=== PATIENT | female | born 1940 | race Asian ===

== ENCOUNTER 2018-05-12 07:56 | Inpatient (IN) | payer MEDICARE, OTHER, SELFPAY ==
[2018-04-22 08:40] VITALS: BMI 26.1
[2018-05-12] VITALS (17 sets, daily range): BP systolic 94–156; BP diastolic 46–73; PULSE 58–83; RESP 12–18; TEMP 36.2–37.1; O2SAT 92–99; BMI 24.3; BMI 25.7
--- NOTE | 2018-05-12 08:49 | PM.PREOP ---
Pre-operative Note Interval Note Pre-op Check: Yes History & Physical Reviewed by Physician and Yes Exam Performed Changes: No
--- NOTE | 2018-05-12 08:54 | DI.RAD.S_ITS ---
PROCEDURE: XR KNEE LT 1TO2V INDICATIONS: post op films TECHNIQUE: 3 view(s) of the knee acquired. COMPARISON: [facility], [facility], XR KNEE ARTHRITIC SERIES LT, 09/03/2017, 13:09[facility], 11:36. FINDINGS: Bones: Patient is status post knee joint arthroplasty. Hardware components are in expected positions. Visualized bony structures are intact. Soft tissues: Overlying postoperative changes are noted. IMPRESSION: Expected postoperative appearance Dictated by: Wesly Reilly M.D. on 05/12/2018 at 15:04 Approved by: Wesly Reilly M.D. on 05/12/2018 at 15:05
[2018-05-12] MEDS: LACTATED RINGERS 1,000 ML 42 ML IV (09:42)
[2018-05-12] MEDS: PREGABALIN 75 MG CAPSULE PO (09:49)
[2018-05-12] MEDS: CELECOXIB 200 MG CAPSULE PO (09:49)
[2018-05-12] MEDS: ACETAMINOPHEN 325 MG TABLET 975 MG PO ×3 (09:49→20:43)
--- NOTE | 2018-05-12 10:28 | PM.OP.1 ---
Operative Date/Time/Diagnoses Date of procedure: 05/12/18 Time of procedure: 12:56 Pre-op diagnosis: Left knee osteoarthritis Post-op diagnosis: same Procedure & Clinicians Procedure: Left total knee arthroplasty Same procedure as scheduled: Yes Indications: The patient presents today for total knee arthroplasty after failure of conservative treatment. The nature of the procedure including the risks and benefits, alternatives, postoperative course and expected outcome were discussed and all questions answered. Consent was obtained. Operative site confirmed and marked. Surgeon: Rhett Schneider Central Office Associate: Juan Moy Anesthesia Type: General, Spinal and Local Operative Notes Findings: Patient has severe osteoarthritis with large ossicles in the anterior and medial compartments. There is significant medial bone loss requiring a 12 mm resection on the lateral side. She also had a 15-20 degree flexion contracture preoperatively. Closure Type: primary Specimen(s): none sent Implants & Drains: [employer] Kai BCS: 5 femoral component, 3 tibial component, 9 mm BCS polyethylene tray and 32 mm oval patella Applied: implant(s) Estimated Blood Loss (mL): 50 Blood products transfused: none Tourniquet time (min): 26 Procedure in detail: The patient was taken to the operative suite and placed under general and spinal anesthesia. The patient was given prophylactic antibiotics prior to surgery. The patient was also given tranexamic acid, 1 g, just prior to surgery for postoperative hemostasis. The lateral knee was prepped and the joint injected with 20 mL of 1% Lidocaine with epinephrine. The knee was then prepped and draped in usual sterile fashion. The leg was exsanguinated with an Esmarch dressing and the tourniquet raised to 250 torr. A 15 cm anterior incision was made. Next a medial trivector arthrotomy was made. The extensor mechanism was marked to ensure accurate repair. Initial exposing dissection was carried out medially and laterally. The knee was then extended and the patellar thickness was measured and a cut made removing approximately 9 mm of bone. The patella was then sized and drilled. Some excess lateral bone was excised and the patellofemoral ligament released. The knee was then flexed and the intramedullary femoral guide karthikeyan placed. The distal femoral cut was made in 6 ? of valgus at the + 2 position. The femoral size was measured and the appropriate cutting block was then placed and the anterior, posterior and chamfer cuts made. The extra medullary tibial alignment karthikeyan was then placed along the anatomic axis of the tibia approximating the normal slope. The guide was set to remove approximately 12 mm from the less affected lateral side. The cut needed to be this deep so a taken adequate cut medially which had significant bone loss. The proximal tibial cut was then made with an oscillating saw. All meniscus and bony debris was then removed. Flexion extension gaps were checked. The knee had excellent medial lateral balance without specific releases other than routine soft tissue releases and osteophyte removal. There were large bony ossicles posteriorly and anteriorly which were removed. The soft tissues were then injected with a combination of 20 mL of half percent Marcaine with epinephrine and 20 mL of Exparel. The trial components were then placed. The knee went into full extension and flexion beyond 120?. There was excellent medial- lateral balance throughout motion. Patellar tracking was excellent. The trial components were removed and the knee was cleansed with Pulsavac irrigation and dried. The final components were cemented in with high viscosity vacuum mixed bone cement with antibiotics. The knee was held in extension and the patellar clamp until the cement had adequately cured. The knee was irrigated and inspected for any further debris. The knee was then irrigated with dilute Betadine solution. The extensor mechanism was closed with 5 interrupted #1 Vicryl sutures in 90 degrees of flexion. The joint was then injected with a combination of 1 g of tranexamic acid and 20 mL of quarter percent Marcaine with epinephrine. The subcutaneous tissue was closed with 2-0 Vicryl. The skin was closed with mynor and surgical adhesive. An Aquacell dressing and Jerrell wrap were then applied. The patient tolerated the procedure well and was returned to recovery room in good condition. Complications: none Condition: stable Disposition: PACU Plan for aftercare: [facility] protocol for total knee arthroplasty.
[2018-05-12] MEDS: CEFAZOLIN 2 GM/100 ML FROZ.PIGGY IV ×2 (11:05→19:06)
--- NOTE | 2018-05-12 11:38 | SUR.OPER ---
Supine on padded OR bed. Pillow under head, arms secured on padded armboards <90 degree abduction. Safety belt across torso. Non-operative leg secured with tape over blanket over lower leg. Operative leg secured in DeMayo/Valentin positioner. Foam padded brace at thigh of operative leg.
[2018-05-12] MEDS: TRANEXAMIC ACID 1,000 MG VIAL 1000 MG INJ ×2 (11:46→11:54)
[2018-05-12] MEDS: LIDOCAINE 1% W/EPI INJ 20 ML INJ (11:47)
[2018-05-12] MEDS: BUPIVACAINE 0.5% W/ EPI (PF) 20 ML, BUPIVACAINE LIPOSOME 266 MG, SODIUM CHLORIDE 0.9% 2... INJ (11:49)
--- NOTE | 2018-05-12 13:28 | SUR.PHASEI ---
REPORT CALLED TO MARTIN BALDERAS ON ACUTE CARE FLOOR. PT IN STABLE CONDITION, VSS. PT LAYING IN BED WITH EYES OPEN AND TALKING TO RN. PT DENIES ANY PAIN/DISCOMFORT OR NAUSEA. SURGICAL SITE OBSERVED TO BE C/D/I.
--- NOTE | 2018-05-12 13:45 | SUR.PHASEI ---
PT TRANSFERED TO ACUTE CARE FLOOR IN STABLE CONDITION. PT TALKING TO RN DURING TRANSPORT. PT FAMILY AT BEDSIDE UPON ARRIVAL TO ROOM. BEDSIDE REPORT GIVEN TO MARTIN BALDERAS AND TRANSFERED CARE OF PT TO HER AT THAT TIME.
[2018-05-12] MEDS: LACTATED RINGERS 1,000 ML 125 ML IV (14:01)
[2018-05-12] MEDS: LEVOTHYROXINE 25 MCG TABLET PO (15:37)
--- NOTE | 2018-05-12 16:32 | PT.IIE ---
Current Diagnoses Unilateral primary osteoarthritis, left knee (05/12/18) Hemarthrosis, left knee (05/12/18) Surgery Performed Operation Date: 05/12/18 10:30 Actual Procedures p Total Knee Arthroplasty(Left) - Rhett Schneider MD Surgical History (Last Updated 04/22/18 @ 08:44 by Selam Quinteros, RN) History of arthroplasty of right knee (Acute ~11/10/16) Hx of cholecystectomy (Acute) Medical History (Last Updated 04/22/18 @ 08:48 by Selam Quinteros RN) Arthritis (Acute) Asthma (Acute) CKD (chronic kidney disease) stage 3, GFR 30-59 ml/min (Acute) COPD (chronic obstructive pulmonary disease) (Acute) 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) Diabetes (Acute) Easy bruisability (Acute) Hypercalcemia (Acute) Hyperlipidemia (Acute) Irregular heart beat (Acute) ZEINA (obstructive sleep apnea) (Acute) Osteoporosis (Acute) Pneumonia (Acute ~1995) RLS (restless legs syndrome) (Acute) Thyromegaly (Acute) Physical Therapy Inpatient Evaluation/Re-Eval M1 PT/OT-IP Prior Functional Status Start: 05/12/18 16:35 Freq: NEEDED Status: Active Protocol: Document 05/12/18 16:32 DLM (Rec: 05/12/18 16:46 [facility] [id number]) Medical Review Prior Functional Status Medical History Reviewed Yes Diet/Fluid Consistency Regular Communication WNL Mobility and Gait Independent gait without device Activities of Daily Living and IADL's Independent Prior Functional Level (Other details) had right TKA about 1.5 years ago Social History Household Members family children Living Arrangements Mobile home Number of Floors (Floors) One Floor Number of Stairs To Enter/Railing? ramp Home Equipment Front Wheel Walker Additional Social History Comment has CPAP at home but it is not working M2 PT-IP Current Condition Start: 05/12/18 16:35 Freq: NEEDED Status: Active Protocol: Document 05/12/18 16:32 DLM (Rec: 05/12/18 16:46 DL [id number]) Physical Therapy Current Condition Current Condition Evaluation Date 05/12/18 Treatment Diagnosis left TKA, impaired gait Onset Date 05/12/17 Weight Bearing Status Weight Bearing Status Weight Bear as Tolerated M3 PT-IP Subjective Start: 05/12/18 16:35 Freq: NEEDED Status: Active Protocol: Document 05/12/18 16:32 DLM (Rec: 05/12/18 16:46 DL [id number]) Subjective Physical Therapy Visit Type Type Initial Evaluation Visit Start Time 16:00 Visit Stop Time 16:34 Total Visit Minutes 34 Number of LUBE ATTENDANT Visits 0 Physical Therapy Visit Comments Patient Comments She has had no pain since surgery Patient Goals She want to go home Therapy Pain Assessment Pain When Pain Assessed During Mobility Pain Present Pain Present Denied Pain M4 PT-IP Mobility and Gait Start: 05/12/18 16:35 Freq: NEEDED Status: Active Protocol: Document 05/12/18 16:32 DLM (Rec: 05/12/18 16:46 [facility] [id number]) PT-Bed Mobility Assessment Supine to Sit Supine to Sit Standby Assistance Scooting Scooting to Edge of Bed Independent Scooting Up and Down in Bed Independent PT-Transfer Assessment Sit to and From Stand Sit to and from Stand Standby Assistance Use of Upper Extremities Equipment Transfer Assistive Device Gait Belt Front Wheeled Walker Transfers Transfer Destination Chair Transfer Technique Stand Step Pivot Transfer Ability Level of Assist Standby Assistance Gait Assessment Gait Gait Assistance Required: Standby Assistance Distance (Feet) 3 Assistive Devices Assistive Device Gait Belt Front Wheeled Walker Gait Deviations General Gait Pattern Antalgic Factors Limiting Gait Function Factors Limiting Gait Function Decreased Activity Tolerance Comments Gait Comments mild light-headedness while up , pt left up in recliner with initial vitals BP 120/70 and HR 64, repeated vitals 130/63 and HR 61, nursing aware pt is up in chair PT-Balance Assessment Sitting Balance and Reactions Static Sitting Balance Ability Normal Dynamic Sitting Balance Ability Normal Standing Balance and Reactions Static Standing Balance Ability Good Dynamic Standing Balance Ability Good Device Used FWW M5 PT-IP Objective Assessments Start: 05/12/18 16:35 Freq: NEEDED Status: Active Protocol: Document 05/12/18 16:32 DLM (Rec: 05/12/18 16:46 [facility] [id number]) Orientation Orientation/Cognition Level of Alertness Alert Orientation Name Age Birthday Month Date Year Day of Week Place Situation Language Function Ability No Deficits Noted Safety Awareness Understands Safety Issues Memory Description No Deficits Noted Gross Range of Motion Upper Extremity ROM Assessment Within Functional Limits Lower Extremity ROM Assessment Left Impaired Impairments post-op, tolerating 90 degrees seated edge of bed and full extension in supine Strength Upper Extremity Strength Assessment Within Functional Limits Lower Extremity Strength Assessment Left Impaired Hip independent straight leg raise with extensor lag Knee at least 3/5 post-op Ankle DF 5/5 Coordination Assessment Gross Coordination Gross Coordination WNL Sensation Assessment Sensation Gross Sensation WNL Comments Sensation Comments no numbness reported, pt has bandar wrap on left LE Muscle Tone Muscle Tone WNL Yes M6 PT-IP Treatment Start: 05/12/18 16:35 Freq: NEEDED Status: Active Protocol: Document 05/12/18 16:32 DLM (Rec: 05/12/18 16:46 DLM [id number]) Physical Therapy Treatment Exercises Exercises Ankle Pumps Education Education Provided Weight Bearing Status Post-Op Packet Safety M7 PT-IP Assessment and Plan Start: 05/12/18 16:35 Freq: NEEDED Status: Active Protocol: Document 05/12/18 16:32 DLM (Rec: 05/12/18 16:46 DLM [id number]) PT Summary Assessment and Plan Potential Rehabilitation Potential Excellent Status of Condition at Evaluation Evolving Summary Impairments Pain ROM Strength Transfers Gait Activity Tolerance Assessment Summary She is alert and eager to move today. She developed mild light-headedness when up which resolved once resting in recliner. Noted a drop in BP when up but stabalized in sitting. She is moving well at this time. Pt left sitting up in recliner. Anticipate she will be safe to discharge home with family support when medically stable. Goals Bed Mobility Goal Independent Transfer Goal Independent Front Wheeled Walker Gait Goal Independent Front Wheel Walker Gait Distance 150 feet Days to Meet Goals 2 Frequency of Treatment Frequency Of Treatment Twice a Day Treatment Plan Physical Therapy Treatment Plan Bed Mobility Training Transfer Training Gait Training Therapeutic Exercise Balance Retraining Post Op Education Discharge Planning Hot or Cold Pack Recommendations To Nursing Amount of Assist Needed 1 Person Assist Discharge Recommendations PT Discharge Recommendations Home with Assistance Outpatient PT
[2018-05-12] MEDS: ONDANSETRON 4 MG/2 ML INJ IV (17:07)
[2018-05-12] MEDS: TELMISARTAN 40 MG TABLET PO (20:42)
[2018-05-12] MEDS: ROPINIROLE 1 MG TABLET PO (20:43)
[2018-05-12] MEDS: ASPIRIN EC 81 MG TABLET PO (20:43)
[2018-05-12] MEDS: BENZONATATE 100 MG CAPSULE PO (20:43)
[2018-05-12] MEDS: SIMVASTATIN 20 MG TABLET PO (20:43)
[2018-05-13] VITALS (10 sets, daily range): BP systolic 131–142; BP diastolic 55–73; PULSE 79–94; RESP 16–20; TEMP 36.7–38.1; O2SAT 89–96
[2018-05-13] MEDS: CEFAZOLIN 2 GM/100 ML FROZ.PIGGY IV (02:12)
[2018-05-13] MEDS: LEVOTHYROXINE 25 MCG TABLET PO (03:01)
[2018-05-13] MEDS: OXYCODONE IR 5 MG TABLET PO ×5 (03:01→19:33)
--- NOTE | 2018-05-13 05:04 | PC.NURSE ---
Copy Writer Note: 0030: Awake, resting in bed. Pt denies pain at this time. Dressing and bandar wrap to lt knee are cdi. Pt remains on O2 1L/NC, with continuous pulse oximeter. IV in place in rt wrist.
[2018-05-13 05:36] LABS: Hematocrit 28.2 % (36-46); Hemoglobin 9.1 g/dL (12.0-16.0)
[2018-05-13] MEDS: ACETAMINOPHEN 325 MG TABLET 975 MG PO ×3 (08:30→20:44)
[2018-05-13] MEDS: hydroCHLOROthiazide 25 MG TABLET PO (08:30)
[2018-05-13] MEDS: ASPIRIN EC 81 MG TABLET PO ×2 (08:30→20:44)
[2018-05-13] MEDS: TELMISARTAN 40 MG TABLET PO ×2 (08:30→20:46)
[2018-05-13] MEDS: ALBUTEROL HFA 60 PUFF/8 GM INH INH ×3 (08:31→14:30)
[2018-05-13] MEDS: NICOTINE 7 MG PATCH TOP (08:32)
[2018-05-13] MEDS: ONDANSETRON 4 MG ODT PO (09:28)
--- NOTE | 2018-05-13 10:15 | PT.IPTN ---
Current Diagnoses Unilateral primary osteoarthritis, left knee (05/12/18) Hemarthrosis, left knee (05/12/18) Surgery Performed Operation Date: 05/12/18 10:30 Actual Procedures p Total Knee Arthroplasty(Left) - Rhett Schneider MD Physical Therapy Treatment Note M2 PT-IP Current Condition Start: 05/12/18 16:35 Freq: NEEDED Status: Active Protocol: Document 05/12/18 16:32 DLM (Rec: 05/12/18 16:46 DLM [id number]) Physical Therapy Current Condition Current Condition Evaluation Date 05/12/18 Treatment Diagnosis left TKA, impaired gait Onset Date 05/12/17 Weight Bearing Status Weight Bearing Status Weight Bear as Tolerated M3 PT-IP Subjective Start: 05/12/18 16:35 Freq: NEEDED Status: Active Protocol: Document 05/13/18 10:03 SA (Rec: 05/13/18 10:14 SA [id number]) Subjective Physical Therapy Visit Type Type Treatment Note Visit Start Time 09:02 Visit Stop Time 09:27 Total Visit Minutes 25 Number of FORMAL WAITER/WAITRESS Visits 1 Physical Therapy Visit Comments Patient Comments Pt feeling some pain/soreness this AM. Patient Goals To go home with daughter. Therapy Pain Assessment Pain When Pain Assessed During Mobility Pain Present Pain Present Pain Reported Location L knee Intensity 7 Scale Used Numeric (1 - 10) Pain Management Techniques Apply Cold Modification of Treatment Re-positioning Timing of Activity with Medications M4 PT-IP Mobility and Gait Start: 05/12/18 16:35 Freq: NEEDED Status: Active Protocol: Document 05/13/18 10:03 SA (Rec: 05/13/18 10:14 SA [id number]) PT-Bed Mobility Assessment Rolling Type of Rolling Roll to Right Level of Assist Standby Assistance Supine to Sit Supine to Sit Standby Assistance Sit to Supine Sit to Supine Standby Assistance Scooting Scooting to Edge of Bed Independent Scooting Up and Down in Bed Independent PT-Transfer Assessment Sit to and From Stand Sit to and from Stand Standby Assistance Use of Upper Extremities Equipment Transfer Assistive Device Gait Belt Front Wheeled Walker Orthotic/Prosthetic Devices or Brace: No Transfers Transfer Destination Bed Transfer Technique Stand Step Pivot Transfer Ability Level of Assist Standby Assistance Comments Mobility Comments Pt able to clear LE over EOB for sit to supine with SBA and crossing RLE under LLE. SBA and FWW for stand pivot txs with cues for safety. Gait Assessment Gait Gait Assistance Required: Standby Assistance Contact Guard Assist Distance (Feet) 75 Assistive Devices Assistive Device Gait Belt Front Wheeled Walker Gait Deviations General Gait Pattern Antalgic Decreased Stride Length Flexed Trunk Factors Limiting Gait Function Factors Limiting Gait Function Decreased Activity Tolerance Pain Comments Gait Comments Pt had no c/o light-headedness with standing/ambulation. Rates pain as 7-8/10 but has only had tylonol and plans to have pain medication after session. Gait training in halls with FWW and SBA-CGA with mod cues for upright posture and increasing WBing through LLE. PT-Balance Assessment Sitting Balance and Reactions Static Sitting Balance Ability Normal Dynamic Sitting Balance Ability Normal M5 PT-IP Objective Assessments Start: 05/12/18 16:35 Freq: NEEDED Status: Active Protocol: Document 05/12/18 16:32 DLM (Rec: 05/12/18 16:46 DLM [id number]) Orientation Orientation/Cognition Level of Alertness Alert Orientation Name Age Birthday Month Date Year Day of Week Place Situation Language Function Ability No Deficits Noted Safety Awareness Understands Safety Issues Memory Description No Deficits Noted Gross Range of Motion Upper Extremity ROM Assessment Within Functional Limits Lower Extremity ROM Assessment Left Impaired Impairments post-op, tolerating 90 degrees seated edge of bed and full extension in supine Strength Upper Extremity Strength Assessment Within Functional Limits Lower Extremity Strength Assessment Left Impaired Hip independent straight leg raise with extensor lag Knee at least 3/5 post-op Ankle DF 5/5 Coordination Assessment Gross Coordination Gross Coordination WNL Sensation Assessment Sensation Gross Sensation WNL Comments Sensation Comments no numbness reported, pt has bandar wrap on left LE Muscle Tone Muscle Tone WNL Yes M6 PT-IP Treatment Start: 05/12/18 16:35 Freq: NEEDED Status: Active Protocol: Document 05/13/18 10:03 SA (Rec: 05/13/18 10:14 SA [id number]) Physical Therapy Treatment Exercises Exercises Ankle Pumps Quad Sets Heel Slides Education Education Provided Weight Bearing Status Post-Op Packet Safety M7 PT-IP Assessment and Plan Start: 05/12/18 16:35 Freq: NEEDED Status: Active Protocol: Document 05/13/18 10:03 SA (Rec: 05/13/18 10:14 SA [id number]) PT Summary Assessment and Plan Potential Rehabilitation Potential Excellent Status of Condition at Evaluation Evolving Summary Assessment Summary Pt used 1L 02 with sats 93-95% with activity. SBA-Ind with bed mobility and SBA- occasional CGA for transfers and gait. Pt demonstrates good safety awareness and use of FWW. Has daughter who is a [employer] at home for assistance. Has OP PT set up upon d/c. Frequency of Treatment Frequency Of Treatment Twice a Day Treatment Plan Physical Therapy Treatment Plan Bed Mobility Training Transfer Training Gait Training Therapeutic Exercise Balance Retraining Post Op Education Discharge Planning Hot or Cold Pack Recommendations To Nursing Amount of Assist Needed 1 Person Assist Discharge Recommendations PT Discharge Recommendations Home with Assistance Outpatient PT
--- NOTE | 2018-05-13 11:49 | PM.PNPO.1 ---
Subjective Date Patient Seen: 05/13/18 Time Patient Seen: 11:50 Interval history: Patient's pain is [id number]. Patient denies fever chills. She has been little short of breath and is on 1 L oxygen per nasal cannula. Denies chest pain. She has been up ambulating with physical therapy. Patient does have a history of COPD and asthma as well as chronic tobacco use. Exam Vital Signs (past 8 hours): - 05/13/18 07:20 05/13/18 08:24 05/13/18 08:58 Pulse Rate 81 Respiratory Rate 20 Blood Pressure 131/55 L Pulse Oximetry 95 96 95 05/13/18 08:59 Pulse Rate 82 Respiratory Rate 18 Blood Pressure Pulse Oximetry 89 L Fraction of Inspired Oxygen 21 Oxygen Delivery Method Nasal Cannula Oxygen Flow Rate 0 Narrative Exam Narrative: 78-year-old female sitting at bedside in no apparent distress. Left knee dressing is clean, dry and intact. Neurovascular status is intact to the distal left lower extremity. O2 sat early this morning was 96% on 1 L and failed 89% with physical therapy. Patient's back on 1 L per nasal cannula at this time. Will work on weaning her off oxygen prior to discharge. Likely discharge home tomorrow if oxygen saturation improved. Objective Labs Result Diagrams: 05/13/18 04:56 Labs: Laboratory Results - last 24 hr 05/13/18 04:56 Hgb 9.1 L Hct 28.2 L Assessment & Plan Post-op Postoperative Procedures Operation Date: 05/12/18 10:30 Actual Procedures Side Surgeon p Total Knee Arthroplasty Left Rhett Schneider MD Weightbearing as tolerated left lower extremity. Encourage incentive spirometer.
--- NOTE | 2018-05-13 11:52 | CM.DANOTE ---
Addendum entered by LUIS ALBERTO Petersen 05/13/18 12:28: Per LAKEISHA Moy patient to possible discharge home tomorrow (Thursday). Original Note: Discharge Planning/Care Management CM Discharge Assessment Start: 05/13/18 11:50 Freq: Status: Active Protocol: Document 05/13/18 11:50 (Rec: 05/13/18 11:52 [id number]) Discharge Planning Assessment Assigned Intake Counselor LUIS ALBERTO Reyes Advance Directives? Yes Advance Directives on File No History Provided By Patient Medical Record Has Patient been admitted in last 30 No days? Prior Living Arrangements Mobile home Household Members family children Type of transporation used prior to Drives own vehicle admit Independent with ADL's Yes Is patient alert and oriented? Yes Patient/Family Preference OP PT Therapy Barriers to Discharge No Discharge Plan Home Community Services Physical Therapy Transportation Arrangement Daughter Joana to provide. Additional Comment Patient has OP PT set up with PT. Patient is hopeful to discharge home today. Whiteboard Updated in Patient Room with Yes name and ext. # of Intake Counselor Please Provide Date Initial DC 05/13/18 Assessment Was Performed Pre-Anesthesia Assessment Start: 04/22/18 08:40 Freq: Status: Complete Protocol: Document 04/22/18 08:40 CAB (Rec: 04/22/18 09:27 CAB [id number]) Pre-Anesthesia Assessment Patient Information Reviewed Via Phone Assessment Assessment Completed With Patient Lab Results BMP/CMP CBC EKG Other Comment A1c - Outside labs/EKG to med records to be scanned to chart Primary Care Provider Antonio Seen Specialist in Last 12 Months Yes Specialist Seen Oncologist Orthopedist Primary Language Omani Ground Host/Hostess Required No Height 162.56 cm Weight 68.946 kg Body Mass Index (BMI) 26.1 Hearing Ability Normal Visual Assist Glasses Dentition Type Full- Upper & Lower Barriers to Learning Age related Memory Hx Anesthesia Reactions No Hx Family Anesthesia Reaction No Hx Malignant Hyperthermia No Hx Blood Transfusions No Anesthesia Review Requested No Coroner Forensic Technician No alcohol intake former Alcohol Intake Frequency Other: None Smoking Status Current every day smoker Smoking packs per day 0.50 Substance Use Type does not use Pain Present Pain Reported Musculoskeletal Symptoms Abnormal Gait Difficulty Walking Joint Pain Joint Stiffness History of Falling (Recent or History of Yes ) Patient is completely paralyzed or No completely immobile Prosthesis or Orthotic Device Cane Front Wheel Walker Mental Status Oriented to own ability Is patient on oxygen? No Does patient have LYONS/SOB No Hx Sleep Apnea Yes: Pt states current CPAP not working correctly CPAP/BIPAP use prescribed not used Comment Pt will speak w/PCP to obtain new CPAP-advised to bring dos if available Currently Taking a Beta Quintin No Can You Climb a Flight of Stairs Without Yes SOB Hx Chest Pain No Hx SOB No Hx Syncope or Dizziness No Anti-Coagulant Therapy Yes: Aspirin 81mg/bid Has a Carpenter Helper Maintenance No Cardiac Testing No Hx Pacemaker/ICD No Pacemaker Rep Required? No Cardiac Clearance Received Not Applicable Diet Type At Home Regular dysphagia No Urinary Catheter Present No Hx Urinary Self Catheterization No Diabetes Yes: Pt checks blood sugar once every couple of days HgbA1C 6.7 Date 03/29/18 Patient No Lactating No Hx Drug Resistant Organism No Presence of External or Internal Medical No Devices Have you traveled outside the [facility] in the last 30 days? Marital Status / Lives With family children Prior Living Arrangements Mobile home Number of Floors (Floors) One Floor Number of Stairs To Enter/Railing? none Support System Child/Children Does the Patient Have Assistance After Yes Surgery Patient Discharge Plan Description Return Home Comment Pt not advised on length of stay per surgeon's office Feels Safe in Current Environment Yes Been Physically Hurt or Threatened By a No Person in Current Environment Do you have thoughts of harming yourself None or others? Are you currently considering suicide? No Do you have a plan to hurt yourself or No Plan others? Do You Have Any Spiritual Beliefs That No May Affect Your HC Choices? Do You Have Any Cultural Practices That No May Affect Your HC Choices? Spiritual Referral In-House Revenue Audit Clerk Comment Gnosticism Who Can We Speak to About Patient's Care Family, friends Identifying Code for Release of Patient Declines to issue Information Health Care Proxy/Next of Kin Joana (daughter) Health Care Proxy or [phone] Emergency Contact Name Joana (daughter) Emergency Contact or [phone] Advance Directives? Yes Advance Directives on File No Requested Patient Bring Advanced Yes Directives DOS Power of Program Paraprofessional Yes Power of Program Paraprofessional Name Joana (daughter) Power of Program Paraprofessional or [phone] PAC Instructions Bring CPAP/BIPAP Do not shave/clip surgical site Durable medical equipment Medications to take/avoid Nasal antibiotic No ETOH/petroleum product on skin DOS NPO Pre-surgical wash Sturdy shoes/comfortable clothes Do not bring valuables and remove jewelry
--- NOTE | 2018-05-13 12:12 | PC.NURSE ---
Attempted to wean patient from 1L oxygen, 87-90% on ra, and unable to maintain at this time. 1L nc put back on and patient up to 96%. Isa Sierra states he will order a RT consult, and plan for patient to stay overnight.
--- NOTE | 2018-05-13 13:45 | PT.IPTN ---
Current Diagnoses Unilateral primary osteoarthritis, left knee (05/12/18) Hemarthrosis, left knee (05/12/18) Surgery Performed Operation Date: 05/12/18 10:30 Actual Procedures p Total Knee Arthroplasty(Left) - Rhett Schneider MD Physical Therapy Treatment Note M2 PT-IP Current Condition Start: 05/12/18 16:35 Freq: NEEDED Status: Active Protocol: Document 05/12/18 16:32 DLM (Rec: 05/12/18 16:46 DLM [id number]) Physical Therapy Current Condition Current Condition Evaluation Date 05/12/18 Treatment Diagnosis left TKA, impaired gait Onset Date 05/12/17 Weight Bearing Status Weight Bearing Status Weight Bear as Tolerated M3 PT-IP Subjective Start: 05/12/18 16:35 Freq: NEEDED Status: Active Protocol: Document 05/13/18 13:39 AMH (Rec: 05/13/18 13:45 AMH [email or web address]) Subjective Physical Therapy Visit Type Type Treatment Note Visit Start Time 13:05 Visit Stop Time 13:35 Total Visit Minutes 30 Number of WATERPROOFING SUPERVISOR Visits 0 Physical Therapy Visit Comments Patient Comments Reports pain 5/10 Patient Goals To go home with daughter. Therapy Pain Assessment Pain When Pain Assessed During Mobility Pain Present Pain Present Pain Reported M4 PT-IP Mobility and Gait Start: 05/12/18 16:35 Freq: NEEDED Status: Active Protocol: Document 05/13/18 13:39 AMH (Rec: 05/13/18 13:45 AMH [id number]) PT-Bed Mobility Assessment Rolling Type of Rolling Roll to Right Level of Assist Standby Assistance Supine to Sit Supine to Sit Standby Assistance Sit to Supine Sit to Supine Standby Assistance Scooting Scooting to Edge of Bed Independent Scooting Up and Down in Bed Independent PT-Transfer Assessment Sit to and From Stand Sit to and from Stand Standby Assistance Use of Upper Extremities Equipment Transfer Assistive Device Gait Belt Front Wheeled Walker Orthotic/Prosthetic Devices or Brace: No Transfers Transfer Destination Bed Transfer Technique Stand Step Pivot Transfer Ability Level of Assist Standby Assistance Comments Mobility Comments Pt able to demonstrate safe transfer technique and did not require verbal cueing for transfer in and out of bed Gait Assessment Gait Gait Assistance Required: Standby Assistance Contact Guard Assist Distance (Feet) 60 Assistive Devices Assistive Device Gait Belt Front Wheeled Walker Gait Deviations General Gait Pattern Antalgic Decreased Stride Length Flexed Trunk Factors Limiting Gait Function Factors Limiting Gait Function Decreased Activity Tolerance Pain Comments Gait Comments rates pain as 5/10, gait improved as the patient warmed up and she was able to heel strike and take a full step with her right foot. Her O2 sats on 1 liter were 93 initially and went to 86 with exercise M5 PT-IP Objective Assessments Start: 05/12/18 16:35 Freq: NEEDED Status: Active Protocol: Document 05/12/18 16:32 DLM (Rec: 05/12/18 16:46 DLM [id number]) Orientation Orientation/Cognition Level of Alertness Alert Orientation Name Age Birthday Month Date Year Day of Week Place Situation Language Function Ability No Deficits Noted Safety Awareness Understands Safety Issues Memory Description No Deficits Noted Gross Range of Motion Upper Extremity ROM Assessment Within Functional Limits Lower Extremity ROM Assessment Left Impaired Impairments post-op, tolerating 90 degrees seated edge of bed and full extension in supine Strength Upper Extremity Strength Assessment Within Functional Limits Lower Extremity Strength Assessment Left Impaired Hip independent straight leg raise with extensor lag Knee at least 3/5 post-op Ankle DF 5/5 Coordination Assessment Gross Coordination Gross Coordination WNL Sensation Assessment Sensation Gross Sensation WNL Comments Sensation Comments no numbness reported, pt has bandar wrap on left LE Muscle Tone Muscle Tone WNL Yes M6 PT-IP Treatment Start: 05/12/18 16:35 Freq: NEEDED Status: Active Protocol: Document 05/13/18 13:39 AMH (Rec: 05/13/18 13:45 [facility] [id number]) Physical Therapy Treatment Exercises Exercises Ankle Pumps Quad Sets Heel Slides Seated Knee Flexion/Extension Education Education Provided Weight Bearing Status Post-Op Packet Safety M7 PT-IP Assessment and Plan Start: 05/12/18 16:35 Freq: NEEDED Status: Active Protocol: Document 05/13/18 13:39 AMH (Rec: 05/13/18 13:45 [facility] [id number]) PT Summary Assessment and Plan Summary Assessment Summary pt staying one additional night due to her need for O2 and O2 sats continuing to drop with mobility and gait. Aiyana demonstrated safe transfer techniques and good weight bearing through her L LE Frequency of Treatment Frequency Of Treatment Twice a Day Treatment Plan Physical Therapy Treatment Plan Bed Mobility Training Transfer Training Gait Training Therapeutic Exercise Balance Retraining Post Op Education Discharge Planning Hot or Cold Pack Recommendations To Nursing Amount of Assist Needed 1 Person Assist Discharge Recommendations PT Discharge Recommendations Home with Assistance Outpatient PT
[2018-05-13] MEDS: BENZONATATE 100 MG CAPSULE PO (14:29)
--- NOTE | 2018-05-13 16:07 | PC.NURSE ---
Addendum entered by Sharron Mixon R.N. 05/13/18 21:20: Satisfactory post op course. HL intact/patent Dsg CDI Med for discomfort x 2 w/good relief. Call light w/in reach, bed alarm on for pt safety. Continue w/plan of care. Original Note: Pt resting quietly @ this time. SpO2 93% 1L, lungs course throughout. Aquacell dsg to left knee CDI Stable post op course. Call light w/in reach, bed alarm on for pt safety.
[2018-05-13] MEDS: ALBUTEROL/IPRATROPIUM 3 ML AMPUL INH (20:15)
[2018-05-13] MEDS: ROPINIROLE 1 MG TABLET PO (20:45)
[2018-05-13] MEDS: SIMVASTATIN 20 MG TABLET PO (20:45)
[2018-05-14] VITALS (10 sets, daily range): BP systolic 121–149; BP diastolic 57–71; PULSE 78–94; RESP 17–20; TEMP 36.7–37.4; O2SAT 89–97
--- NOTE | 2018-05-14 | DI.RAD.S_ITS ---
PROCEDURE: XR CHEST 1V INDICATIONS: sob TECHNIQUE: One view of the chest was acquired. COMPARISON: None. FINDINGS: Surgical changes and devices: None. Lungs and pleura: No pleural effusions or pneumothorax. Lungs are clear. Mediastinum: Mediastinal contours appear normal. Heart size is normal. Bones and chest wall: No suspicious bony lesions. Overlying soft tissues appear unremarkable. IMPRESSION: Normal for age, source of current shortness of breath symptoms is not seen. Dictated by: Daniel Lackey M.D. on 05/14/2018 at 10:32 Approved by: Daniel Lackey M.D. on 05/14/2018 at 10:32
[2018-05-14] MEDS: OXYCODONE/ACETAMINOPHEN 5/325 TABLET 1 TAB PO (00:33)
[2018-05-14] MEDS: LEVOTHYROXINE 25 MCG TABLET PO (05:55)
[2018-05-14] MEDS: OXYCODONE IR 5 MG TABLET PO ×2 (05:55→09:53)
--- NOTE | 2018-05-14 07:43 | PM.DS.1 ---
History of Present Illness Chief complaint: [id number] Discharge Providers Date of admission: 05/12/18 07:56 Consults: 05/12/18 13:47 Consult to Discharge Planning Routine Comment: Consult to Physical Therapy Evaluate & Treat Comment: Physician Instructions: postop TKA protocol Consult to Respiratory Therapy Evaluate & Treat Comment: Physician Instructions: Evaluate and treat 05/12/18 14:12 Consult to Pastoral Services Routine Comment: patient requested 05/13/18 11:58 Consult to Respiratory Therapy Evaluate & Treat Comment: Physician Instructions: Evaluate and treat Discharge provider: Gege Richardson PA-C Exam Vital Signs (past 8 hours): - 05/14/18 00:45 05/14/18 05:25 Temperature 98.1 F 98.6 F Pulse Rate 94 H 82 Respiratory Rate 18 18 Blood Pressure 133/67 149/67 H Pulse Oximetry 94 94 Fraction of Inspired Oxygen 21 Oxygen Delivery Method Room Air Oxygen Flow Rate 1.5 Objective Labs Result Diagrams: 05/13/18 04:56 Discharge Plan Discharge Plan Patient Disposition: Home Discharge Med Rec/Prescriptions Prescriptions: New acetaminophen 325 mg Tablet 975 mg PO TID Qty: 0 RF: 0 aspirin 81 mg Tablet,Delayed Release (Dr/Ec) 81 mg PO BID Qty: 0 RF: 0 oxycodone 5 mg Tablet 5 mg PO Q3HR PRN (Reason: Pain, Moderate (4-6)) Qty: 0 RF: 0 hydroxyzine pamoate [Vistaril] 25 mg capsule 25 mg PO Q6-8H PRN (Reason: nausea/muscle spasms) Qty: 60 RF: 0 Continue levothyroxine [Synthroid] 25 MCG tablet 25 mcg PO QAM Qty: 0 RF: 0 telmisartan [Micardis] 80 MG tablet 40 mg PO BID Qty: 0 RF: 0 calcium carbonate-vitamin D3 [Oyster Shell Calcium-Vit D3] 500 MG/200 IU tablet 1 tab PO QDAY Qty: 0 RF: 0 hydrochlorothiazide 12.5 MG tablet 25 mg PO QDAY Qty: 0 RF: 0 simvastatin 20 MG tablet 20 mg PO BEDTIME Qty: 0 RF: 0 ferrous sulfate 325 mg (65 mg iron) Tablet,Delayed Release (Dr/Ec) 325 mg PO QDAY Qty: 0 RF: 0 omega 2-lnj-utg-fish oil [Fish Oil] 1,000 MG capsule 600 mg PO BID Qty: 0 RF: 0 alendronate 70 MG tablet 70 mg PO QWEEK Qty: 0 RF: 0 ropinirole [Requip] 1 mg Tablet 1 mg PO BEDTIME RF: 0 aspirin 81 MG tablet,delayed release (DR/EC) 81 mg PO DAILY RF: 0 fluticasone [Flovent Diskus] 250 mcg/actuation Blister With Device 1 inh INHALATION BID RF: 0 Discontinued acetaminophen 325 mg Tablet 325 mg PO BID RF: 0 Provider Discharge Instructions Diet: Diet as Tolerated Activity: Weight-bearing as tolerated, use walker until cleared by PT Cold/Heat Therapy: Apply ice 20 minutes at a time to operative site at least hourly while awake Skin/Wound/Dressing Care Report to your healthcare provider any signs of infection, such as:: chills, fever, night sweats, increased pain, unusual drainage and unusual redness Dressing: Keep dressing clean, dry, and intact. May shower with it in place but no soaking. Visit Report/Discharge Packet Instructions: DI for Knee Replacement Discharge Data Attending Provider: Rhett Schneider Admit Date/Time: 05/12/18 07:56
[2018-05-14] MEDS: ALBUTEROL/IPRATROPIUM 3 ML AMPUL INH ×3 (08:15→18:11)
--- NOTE | 2018-05-14 08:43 | P.HP_ITS ---
History of Present Illness Date Patient Seen: 05/14/18 Chief complaint: [id number] Narrative: Aiyana Gordon is a 78-year-old female with a past medical history significant for hypertension, hyperlipidemia, hypothyroidism, and COPD not on oxygen who was admitted for left TKA. Postop day 2. Hospital Medicine service was consulted for postoperative shortness of breath and desaturations. The patient is resting in bedside chair comfortably and in no acute distress. She endorses mild shortness of breath and wheezing. She denies headache, chest pain , abdominal pain, nausea, vomiting, fever, chills, dysuria, diarrhea constipation. She reports her left knee pain is a +5/10 in severity. She has previously been on oxygen after an episode of pneumonia back in 2006. She is chronically short of breath and feels that this is slightly worse than usual. She also has mild sputum production. She has never had a COPD exacerbation. She does not have a asbestos pipe supervisor. She is a current half a pack a day smoker. Her PCP is Ana Rosa Antonio PA-C. 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 She has 2 children, 1 son and 1 daughter who are both healthy. She lives home alone. Safety & Behavioral: Feels Safe in Current Yes Environment Been Physically Hurt or No Threatened By a Person Suicidal Ideation Description None Suicide Plan Description No Plan Tobacco & Substance use: Smoking Status Current every day smoker Smoking packs per day 0.50 alcohol intake former Substance Use Type does not use Meds Home Medications Medication Instructions Recorded Confirmed Type alendronate 70 mg PO QWEEK #0 10/29/16 04/22/18 History calcium carbonate-vitamin D3 1 tab PO QDAY #0 10/29/16 05/12/18 History [Oyster Shell Calcium-Vit D3] ferrous sulfate 325 mg PO QDAY #0 10/29/16 05/12/18 History hydrochlorothiazide 25 mg PO QDAY #0 10/29/16 05/12/18 History levothyroxine [Synthroid] 25 mcg PO QAM #0 10/29/16 05/12/18 History omega 4-mqh-uji-fish oil [Fish Oil] 600 mg PO BID #0 10/29/16 05/12/18 History simvastatin 20 mg PO BEDTIME #0 10/29/16 05/12/18 History telmisartan [Micardis] 40 mg PO BID #0 10/29/16 05/12/18 History aspirin 81 mg PO DAILY 05/12/18 05/12/18 History fluticasone [Flovent Diskus] 1 inh INHALATION BID 05/12/18 05/12/18 History ropinirole [Requip] 1 mg PO BEDTIME 05/12/18 05/12/18 History acetaminophen 975 mg PO TID #0 tab 05/14/18 Rx aspirin 81 mg PO BID #0 tab 05/14/18 Rx hydroxyzine pamoate [Vistaril] 25 mg PO Q6-8H PRN #60 cap 05/14/18 Rx oxycodone 5 mg PO Q3HR PRN #0 tab 05/14/18 Rx Allergies Allergy/AdvReac Type Severity Reaction Status Date / Time nickel Allergy Mild Rash Verified 05/12/18 09:30 hydrocodone Allergy Pt unsure, Verified 05/12/18 09:30 denies any issues Review of Systems Review of Systems A 10 system comprehensive review of systems was conducted with the patient and found to be negative except as above in the History of Present Illness. Exam Vital Signs (past 8 hours): - 05/14/18 00:45 05/14/18 05:25 05/14/18 08:00 Temperature 98.1 F 98.6 F 98.5 F Pulse Rate 94 H 82 87 Respiratory Rate 18 18 18 Blood Pressure 133/67 149/67 H 141/71 H Pulse Oximetry 94 94 94 05/14/18 08:15 Temperature Pulse Rate 85 Respiratory Rate Blood Pressure Pulse Oximetry 94 Fraction of Inspired Oxygen 21 Oxygen Delivery Method Nasal Cannula Oxygen Flow Rate 1 Narrative Exam Narrative: General: Elderly female sitting in bedside chair, in no acute distress, well-developed, well-nourished, appropriately interactive. HEENT: Normocephalic, atraumatic. External ears without defect. Pupils equal, round, and reactive to light. Anicteric sclerae, moist conjunctivae, and no lid lag. Oropharynx free of erythema and cobble stoning with moist mucosa. Neck: Supple with full range of motion. No lymphadenopathy or thyromegaly. Cardiovascular: Distant heart sounds, regular rate and rhythm without murmurs, rubs, or gallops appreciated. Pulmonary: Diminished breath sounds throughout but clear to auscultation, upper airway rhonchi with scattered wheeze. No crackles. Normal respiratory effort with no use of accessory muscles. Abdomen: Bowel tones present. Soft, nontender, nondistended. No hepatosplenomegaly or masses appreciated. Extremities: No clubbing, cyanosis, or edema. Left knee with bandage in place c/ d/i. Skin: Normal temperature, turgor, and texture; no rash, ulcers, or subcutaneous nodules appreciated. Neurological: Cranial nerves grossly intact. Psychiatric: Normal mood and affect. Alert and oriented to person, place, and time. Objective Labs Result Diagrams: 05/13/18 04:56 Assessment & Plan Plan: Assessment/Plan Narrative: Aiyana Gordon is a 78-year-old female with a past medical history significant for hypertension, hyperlipidemia, hypothyroidism, and COPD not on oxygen who was admitted for left TKA. Postop day 2. Hospital Medicine service was consulted for postoperative shortness of breath and desaturations. 1. Osteoarthritis of left knee status post total left knee arthroplasty, present on admission. Active. -Continue Orthopedic surgery recommendations and as needed pain medications. -Continue PT. 2. Acute postoperative shortness of breath with history of COPD, not present on admission. Active. -Patient has a history of non-oxygen dependent COPD. Patient mildly short of breath with desaturations into mid 80s postoperatively and likely secondary to atelectasis versus possible aspiration. -Do not believe this represents COPD exacerbation. -Chest x-ray did not demonstrate any acute cardiopulmonary changes. -Continue as needed Duonebs and albuterol. Wheezing improved significantly with nebulizer treatment. -Ordered incentive spirometer continue to use frequently goal 10 times an hour. -Ordered Mucinex 1200 mg twice daily for up to 7 days. -Encouraged patient to try to stay up and sit in chair as much as possible. -Recommended and discussed smoking cessation. -respiratory therapy has been consulted. O2 saturation goal 88% and above. Titrate off oxygen as tolerated. 3. Hypothyroidism, chronic, present on admission. Stable. -Continue home levothyroxine. 4. Hypertension, chronic, present on admission. Stable. -Continue home hydrochlorothiazide and telmisartan. 5. Hyperlipidemia, present on admission. Presumed stable. -Continue home simvastatin. 6. Restless legs syndrome, present on admission. Stable. -Continue home ropinirole. Patient has improved with nebulizer treatment. Encouraged incentive spirometer use and smoking cessation. Chest x-ray is clear. Do not believe this represents a COPD exacerbation. Continue albuterol inhaler at home. If patient 's oxygen saturations are stable and are at 88% or above without supplemental oxygen she may be discharged. Order guaifenesin 1200 mg b.i.d. for up to 7 days for increased sputum production. Thank you for consulting our services. We will continue to follow along with you.
[2018-05-14] MEDS: hydroCHLOROthiazide 25 MG TABLET PO (09:52)
[2018-05-14] MEDS: TELMISARTAN 40 MG TABLET PO ×2 (09:52→20:25)
[2018-05-14] MEDS: ASPIRIN EC 81 MG TABLET PO ×2 (09:53→20:25)
[2018-05-14] MEDS: ACETAMINOPHEN 325 MG TABLET 975 MG PO ×2 (09:53→20:17)
[2018-05-14] MEDS: SODIUM CHLORIDE 0.9% FLUSH 10 ML IV ×2 (09:54→20:18)
--- NOTE | 2018-05-14 09:54 | PT.IPTN ---
Current Diagnoses Unilateral primary osteoarthritis, left knee (05/12/18) Hemarthrosis, left knee (05/12/18) Surgery Performed Operation Date: 05/12/18 10:30 Actual Procedures p Total Knee Arthroplasty(Left) - Rhett Schneider MD Physical Therapy Treatment Note M2 PT-IP Current Condition Start: 05/12/18 16:35 Freq: NEEDED Status: Active Protocol: Document 05/12/18 16:32 DLM (Rec: 05/12/18 16:46 DLM [id number]) Physical Therapy Current Condition Current Condition Evaluation Date 05/12/18 Treatment Diagnosis left TKA, impaired gait Onset Date 05/12/17 Weight Bearing Status Weight Bearing Status Weight Bear as Tolerated M3 PT-IP Subjective Start: 05/12/18 16:35 Freq: NEEDED Status: Active Protocol: Document 05/14/18 09:47 SA (Rec: 05/14/18 09:53 SA [id number]) Subjective Physical Therapy Visit Type Type Treatment Note Visit Start Time 09:07 Visit Stop Time 00:32 Total Visit Minutes 25 Number of [facility] AGENT Visits 1 Physical Therapy Visit Comments Patient Comments Pt reports feeling stiff this AM butwilling to work with PT. Patient Goals To go home with daughter. Therapy Pain Assessment Pain When Pain Assessed During Mobility Pain Present Pain Present Pain Reported Location L knee Intensity 6 Scale Used Numeric (1 - 10) Pain Management Techniques Apply Cold Modification of Treatment Re-positioning Timing of Activity with Medications M4 PT-IP Mobility and Gait Start: 05/12/18 16:35 Freq: NEEDED Status: Active Protocol: Document 05/14/18 09:47 SA (Rec: 05/14/18 09:53 SA [id number]) PT-Bed Mobility Assessment Rolling Type of Rolling Roll to Right Level of Assist Standby Assistance Supine to Sit Supine to Sit Standby Assistance Sit to Supine Sit to Supine Standby Assistance Scooting Scooting to Edge of Bed Independent Scooting Up and Down in Bed Independent PT-Transfer Assessment Sit to and From Stand Sit to and from Stand Standby Assistance Use of Upper Extremities Equipment Transfer Assistive Device Gait Belt Front Wheeled Walker Orthotic/Prosthetic Devices or Brace: No Transfers Transfer Destination Chair Toilet Transfer Technique Stand Step Pivot Transfer Ability Level of Assist Standby Assistance Comments Mobility Comments STand pivot transfers on/off toilet with SBA and to chair with safe use of FWW and cues for increasing LLE WBing. SBA with bed mobility. Gait Assessment Gait Gait Assistance Required: Standby Assistance Contact Guard Assist Distance (Feet) 100 Assistive Devices Assistive Device Gait Belt Front Wheeled Walker Gait Deviations General Gait Pattern Antalgic Decreased Stride Length Flexed Trunk Factors Limiting Gait Function Factors Limiting Gait Function Decreased Activity Tolerance Pain Comments Gait Comments Pt with initial limited LLE WBing and heeal strike, improved with continued gait and decreased joint stiffness. PT-Balance Assessment Comments Other Balance Tests/Deviations/Treatment Pt able to maintain balance : well with SBA during ADL tasks at sink and with hygiene and toileting. M5 PT-IP Objective Assessments Start: 05/12/18 16:35 Freq: NEEDED Status: Active Protocol: Document 05/12/18 16:32 DLM (Rec: 05/12/18 16:46 DLM [id number]) Orientation Orientation/Cognition Level of Alertness Alert Orientation Name Age Birthday Month Date Year Day of Week Place Situation Language Function Ability No Deficits Noted Safety Awareness Understands Safety Issues Memory Description No Deficits Noted Gross Range of Motion Upper Extremity ROM Assessment Within Functional Limits Lower Extremity ROM Assessment Left Impaired Impairments post-op, tolerating 90 degrees seated edge of bed and full extension in supine Strength Upper Extremity Strength Assessment Within Functional Limits Lower Extremity Strength Assessment Left Impaired Hip independent straight leg raise with extensor lag Knee at least 3/5 post-op Ankle DF 5/5 Coordination Assessment Gross Coordination Gross Coordination WNL Sensation Assessment Sensation Gross Sensation WNL Comments Sensation Comments no numbness reported, pt has bandar wrap on left LE Muscle Tone Muscle Tone WNL Yes M6 PT-IP Treatment Start: 05/12/18 16:35 Freq: NEEDED Status: Active Protocol: Document 05/14/18 09:47 (Rec: 05/14/18 09:53 [id number]) Physical Therapy Treatment Exercises Exercises Ankle Pumps Quad Sets Heel Slides Seated Knee Flexion/Extension Education Education Provided Weight Bearing Status Post-Op Packet Safety M7 PT-IP Assessment and Plan Start: 05/12/18 16:35 Freq: NEEDED Status: Active Protocol: Document 05/14/18 09:47 SA (Rec: 05/14/18 09:53 [id number]) PT Summary Assessment and Plan Potential Rehabilitation Potential Excellent Status of Condition at Evaluation Evolving Summary Assessment Summary Pt to d/c home today with assistance, pt has needed equipment and ramp to enter home. 02 sats 86-92% on RA with activity which is her baseline. Frequency of Treatment Frequency Of Treatment Twice a Day Recommendations To Nursing Amount of Assist Needed 1 Person Assist Discharge Recommendations PT Discharge Recommendations Home with Assistance Outpatient PT
--- NOTE | 2018-05-14 10:13 | PM.PNPO.1 ---
Subjective Date Patient Seen: 05/14/18 Time Patient Seen: 07:45 Interval history: Patient is seen bedside status post left TKA by Dr. Schneider POD #2. Patient's pain is controlled and she is doing well with PT, but her O2 sats keep dropping and she is requiring regular nebulizer treatments. Exam Vital Signs (past 8 hours): - 05/14/18 05:25 05/14/18 08:00 05/14/18 08:15 Temperature 98.6 F 98.5 F Pulse Rate 82 87 85 Respiratory Rate 18 18 Blood Pressure 149/67 H 141/71 H Pulse Oximetry 94 94 94 05/14/18 09:15 Temperature Pulse Rate Respiratory Rate Blood Pressure Pulse Oximetry 94 Fraction of Inspired Oxygen 21 Oxygen Delivery Method Room Air Oxygen Flow Rate 1 Narrative Exam Narrative: WDWN NAD A&Ox3. Dressing on left knee is CDI, no calf tenderness no erythema. Minimal generalized swelling around joint. NVI in LLE. Audible wheeze heard. Objective Labs Result Diagrams: 05/13/18 04:56 Assessment & Plan Post-op (1) Postoperative hypoxia: Current Visit: Yes Status: Acute (2) COPD (chronic obstructive pulmonary disease): Current Visit: Yes Status: Acute (3) Postoperative anemia due to acute blood loss: Current Visit: Yes Status: Acute Postoperative Procedures Operation Date: 05/12/18 10:30 Actual Procedures Side Surgeon p Total Knee Arthroplasty Left Rhett Schneider MD 1. s/p L. TKA- from an orthopedic standpoint doing well. Continue PT, pain medications, VTE prophylaxis. 2. COPD w/hypoxia-spoke with hospitalist for consult for hypoxia. May require home O2 if this is a chronic problem. 3. Post-operative anemia due to acute blood loss-stable. Dispo-pending medical clearance. Possibly today if cleared, if not, over the weekend.
--- NOTE | 2018-05-14 11:07 | PC.NURSE ---
Assess-Pt is up with PT and tolerating well, she is weak and using fww. On 1L of 02 and sats range from 90-94, if oxygen off then patient drops down to 83%. She is sitting up in her chair at this time. Lung sounds upon auscultation with wheezes in the bilateral lower lobes. Resting comfortably in her chair at this time. Dressing to to Knee is cdi with bandar wrap in place. Given 1 oxycodone for discomfort and helpful. Ortho has discharged patient and the hospitalists are also falling her. She is to get a chest xray and has ordered from [facility] for patient.
[2018-05-14] MEDS: guaiFENesin ER 600 MG TAB 1200 MG PO ×2 (11:54→20:25)
[2018-05-14] MEDS: ONDANSETRON 4 MG ODT PO (14:45)
[2018-05-14] MEDS: ROPINIROLE 1 MG TABLET PO (20:25)
[2018-05-14] MEDS: SIMVASTATIN 20 MG TABLET PO (20:25)
[2018-05-15] VITALS (7 sets, daily range): BP systolic 110–142; BP diastolic 56–69; PULSE 78–89; RESP 16–18; TEMP 36.6–36.9; O2SAT 90–97
[2018-05-15] MEDS: OXYCODONE IR 5 MG TABLET PO ×2 (03:59→09:20)
[2018-05-15] MEDS: LEVOTHYROXINE 25 MCG TABLET PO (05:29)
[2018-05-15] MEDS: ALBUTEROL/IPRATROPIUM 3 ML AMPUL INH ×2 (07:39→13:00)
--- NOTE | 2018-05-15 08:04 | P.PN_ITS ---
Subjective Date Patient Seen: 05/15/18 Interval history: Aiyana Gordon is a 78-year-old female with a past medical history significant for hypertension, hyperlipidemia, hypothyroidism, and COPD not on oxygen who was admitted for left TKA. Postop day 2. Hospital Medicine service was consulted for postoperative shortness of breath and desaturations. The patient is resting in bedside chair comfortably and in no acute distress. She feels as though her shortness of breath and wheezing have improved. She continues to have moderate amount of sputum production that she is able to expectorate. She denies headache, sore throat, shortness of breath, chest pain , abdominal pain, nausea, vomiting, fever, chills, dysuria, diarrhea or constipation. She is voiding and passing flatus without difficulty. She is up ambulating with assistance. Discussed smoking cessation again in which the patient reports she is going to abstain at home. Exam Vital Signs (past 8 hours): - 05/15/18 00:25 05/15/18 03:53 05/15/18 07:45 Temperature 98.4 F 97.9 F Pulse Rate 85 84 80 Respiratory Rate 16 16 16 Blood Pressure 142/69 H 135/69 Pulse Oximetry 95 94 96 Fraction of Inspired Oxygen 21 Oxygen Delivery Method Nasal Cannula Oxygen Flow Rate 1 Narrative Exam Narrative: General: Elderly female sitting in bedside chair, in no acute distress, well- developed, well-nourished, appropriately interactive. HEENT: Normocephalic, atraumatic. External ears without defect. Pupils equal, round, and reactive to light. Anicteric sclerae, moist conjunctivae, and no lid lag. Oropharynx free of erythema and cobble stoning with moist mucosa. Neck: Supple with full range of motion. No lymphadenopathy or thyromegaly. Cardiovascular: Distant heart sounds, regular rate and rhythm without murmurs, rubs, or gallops appreciated. Pulmonary: Diminished breath sounds throughout but clear to auscultation, upper airway rhonchi. No crackles or wheeze. Normal respiratory effort with no use of accessory muscles. Abdomen: Soft, nontender, nondistended, bowel sounds present. No hepatosplenomegaly or masses appreciated. Extremities: No clubbing, cyanosis, or edema. Left knee with bandage in place c/ d/i. Skin: Normal temperature, turgor, and texture; no rash, ulcers, or subcutaneous nodules appreciated. Neurological: Cranial nerves grossly intact. Psychiatric: Normal mood and affect. Alert and oriented to person, place, and time. Objective Labs Result Diagrams: 05/15/18 08:20 05/15/18 08:20 Assessment & Plan Plan: Assessment/Plan Narrative: Aiyana Gordon is a 78-year-old female with a past medical history significant for hypertension, hyperlipidemia, hypothyroidism, and COPD not on oxygen who was admitted for left TKA. Postop day 2. Hospital Medicine service was consulted for postoperative shortness of breath and desaturations. 1. Osteoarthritis of left knee status post total left knee arthroplasty, present on admission. Active. -Continue Orthopedic surgery recommendations and as needed pain medications. -Continue PT. 2. Acute postoperative shortness of breath with history of COPD, not present on admission. Resolved. -Patient has a history of non-oxygen dependent COPD. Patient mildly short of breath with desaturations into mid 80s postoperatively and likely secondary to atelectasis versus possible aspiration. -Do not believe this represents COPD exacerbation. -Chest x-ray did not demonstrate any acute cardiopulmonary changes. -Continue as needed Duonebs and albuterol. Wheezing improved significantly with nebulizer treatment. -Continue incentive spirometer periodically and added Acapella for increased sputum clearance goal is to use frequently at least 10 times an hour. -Continue Mucinex 1200 mg twice daily for up to 7 days. -Encouraged patient to try to stay up and sit in chair as much as possible. -Recommended and discussed smoking cessation. Recommended outpatient treatment for nicotine withdrawal if needed. -Respiratory therapy has been consulted. O2 saturation goal 88% and above. Off supplemental oxygen. 3. Hypothyroidism, chronic, present on admission. Stable. -Continue home levothyroxine. 4. Hypertension, chronic, present on admission. Stable. -Continue home hydrochlorothiazide and telmisartan. 5. Hyperlipidemia, present on admission. Presumed stable. -Continue home simvastatin. 6. Restless legs syndrome, present on admission. Stable. -Continue home ropinirole. The patient's shortness of breath and wheezing have resolved with nebulizer treatment. Encouraged continued use of incentive spirometer use and added Acapella for increased sputum clearance. Continue Mucinex 1200 mg twice daily for up to 7 days for mucolytic. Continue to recommend smoking cessation and which the patient reports she is planning to abstain once home. Recommended outpatient treatment as needed for nicotine withdrawal. The patient would benefit from a client experience administrator in the future. Chest x-ray is clear. Do not believe this represents a COPD exacerbation. Continue albuterol inhaler at home and consider anticholinergic inhaler. If patient's oxygen saturations are stable and are at 88% or above without supplemental oxygen at rest and with ambulation she may be discharged. Thank you for consulting our services. We will sign off at this time. Please do not hesitate to call with further questions or assistance.
[2018-05-15 08:36] LABS: Add Manual Diff / Slide Review NO; Basophils Percent Auto 0.4 % (0-2); Eosinophils Percent Auto 1.3 % (2-4); Hematocrit 28.7 % (36-46); Hemoglobin 9.4 g/dL (12.0-16.0); Lymphocytes Percent Auto 12.7 % (25-40); Mean Corpuscular HGB Conc 32.7 % (30-36); Mean Corpuscular Hemoglobin 25.9 PG (26-34); Monocytes Percent Auto 13.8 % (3-14); Neutrophils Absolute Auto 7300 /uL (1500-7000); Neutrophils Percent Auto 71.8 % (50-75); Platelet Count 253 X10^3/uL (150-400); Red Blood Cell Count 3.64 X10^6/uL (4.0-5.2); Red Cell Distribution Width 14.7 % (11.6-14.8); White Blood Cell Count 10.1 X10^3/uL (4.5-11.0)
[2018-05-15 08:46] LABS: Alanine Aminotransferase 19 IU/L (9-52); Albumin 3.6 g/dL (3.5-5.0); Albumin Globulin Ratio 1.2 (1.0-2.8); Alkaline Phosphatase 60 U/L (38-126); Aspartate Aminotransferase 31 IU/L (14-36); BUN Creatinine Ratio 13.3 (6-22); Bilirubin Total 0.5 mg/dL (0.2-1.3); Blood Urea Nitrogen 12 mg/dL (7-17); Calcium 9.6 mg/dL (8.4-10.2); Carbon Dioxide 31 mmol/L (22-32); Chloride 92 mmol/L (98-107); Estimated Glomerular Filt Rate > 60.0 mL/min (>60); Glucose 137 mg/dL (80-110); HEMOLYSIS < 15 (0-50); Sodium 130 mmol/L (137-145); Total Protein 6.6 g/dL (6.3-8.2)
--- NOTE | 2018-05-15 09:07 | P.DS_ITS ---
History of Present Illness Date Patient Seen: 05/15/18 Time Patient Seen: 08:32 Chief complaint: [id number] Narrative: Patient seen bedside status post left TKA postop day 3. Swelling is better today and pain is well controlled. She stayed overnight due to low O2 saturation. She was seen by the hospitalist who believes that she was having low O2 saturation secondary to possible atelectasis and not from a COPD exacerbation. Hospitalist states that the patient will be stable to be discharged as long as her O2 saturation stays above 88%. Discharge Providers Date of admission: 05/12/18 07:56 Consults: 05/12/18 13:47 Consult to Discharge Planning Routine Comment: Consult to Physical Therapy Evaluate & Treat Comment: Physician Instructions: postop TKA protocol Consult to Respiratory Therapy Evaluate & Treat Comment: Physician Instructions: Evaluate and treat 05/12/18 14:12 Consult to Pastoral Services Routine Comment: patient requested 05/13/18 11:58 Consult to Respiratory Therapy Evaluate & Treat Comment: Physician Instructions: Evaluate and treat 05/14/18 08:42 Consult to Respiratory Therapy Evaluate & Treat Comment: hypoxemic Physician Instructions: Evaluate and treat 05/14/18 10:03 Consult to Hospitalist Service Routine Comment: Consulting Provider: Natali Villela Reason for consultation: low O2 saturation, possible home O2 Has provider been notified: Yes Discharge provider: Gege Richardson PA-C Discharge Date: 05/15/18 Summary Discharge Diagnosis: 1. Left knee osteoarthritis 2. COPD-chronic 3. Post-operative anemia due to acute blood loss-stable Exam Vital Signs (past 8 hours): - 05/15/18 03:53 05/15/18 07:20 05/15/18 07:45 Temperature 97.9 F 98.5 F Pulse Rate 84 82 80 Respiratory Rate 16 18 16 Blood Pressure 135/69 110/56 L Pulse Oximetry 94 97 96 Fraction of Inspired Oxygen 21 Oxygen Delivery Method Nasal Cannula Oxygen Flow Rate 1 Narrative Exam Narrative: Well-developed well-nourished no acute distress. Patient is alert and oriented x3. Aquacel dressing on left knee is clean dry and intact with no signs of drainage. Minimal generalized swelling around the joint. No erythema. Calf soft compressible range motion in the ankle is intact. Neurovascularly intact in this extremity. Objective Labs Result Diagrams: 05/15/18 08:20 01/05/19 08:20 Labs: Laboratory Results - last 24 hr 05/15/18 05/15/18 08:20 08:20 WBC 10.1 RBC 3.64 L Hgb 9.4 L Hct 28.7 L MCV 79.0 L MCH 25.9 L MCHC 32.7 RDW 14.7 Plt Count 253 Neut % (Auto) 71.8 Lymph % (Auto) 12.7 L [place] % (Auto) 13.8 Eos % (Auto) 1.3 L Baso % (Auto) 0.4 Neut # (Auto) 7300 H Sodium 130 L Potassium 4.0 Chloride 92 L Carbon Dioxide 31 BUN 12 Creatinine 0.90 Estimated GFR > 60.0 BUN/Creatinine Ratio 13.3 Glucose 137 H Calcium 9.6 Total Bilirubin 0.5 AST 31 ALT 19 Alkaline Phosphatase 60 Total Protein 6.6 Albumin 3.6 Globulin 3.0 Albumin/Globulin Ratio 1.2 Discharge Plan Discharge Plan Patient Disposition: Home Discharge comment: d/c if O2 sats stay above 88& on room air. Cancel discharge order if she stays today. Discharge Med Rec/Prescriptions Prescriptions: New acetaminophen 325 mg Tablet 975 mg PO TID Qty: 0 RF: 0 aspirin 81 mg Tablet,Delayed Release (Dr/Ec) 81 mg PO BID Qty: 0 RF: 0 oxycodone 5 mg Tablet 5 mg PO Q3HR PRN (Reason: Pain, Moderate (4-6)) Qty: 0 RF: 0 hydroxyzine pamoate [Vistaril] 25 mg capsule 25 mg PO Q6-8H PRN (Reason: nausea/muscle spasms) Qty: 60 RF: 0 guaifenesin 600 mg Tablet Extended Release 12hr 1,200 mg PO BID Qty: 30 RF: 0 Continue levothyroxine [Synthroid] 25 MCG tablet 25 mcg PO QAM Qty: 0 RF: 0 telmisartan [Micardis] 80 MG tablet 40 mg PO BID Qty: 0 RF: 0 calcium carbonate-vitamin D3 [Oyster Shell Calcium-Vit D3] 500 MG/200 IU tablet 1 tab PO QDAY Qty: 0 RF: 0 hydrochlorothiazide 12.5 MG tablet 25 mg PO QDAY Qty: 0 RF: 0 simvastatin 20 MG tablet 20 mg PO BEDTIME Qty: 0 RF: 0 ferrous sulfate 325 mg (65 mg iron) Tablet,Delayed Release (Dr/Ec) 325 mg PO QDAY Qty: 0 RF: 0 omega [id number]-fish oil [Fish Oil] 1,000 MG capsule 600 mg PO BID Qty: 0 RF: 0 alendronate 70 MG tablet 70 mg PO QWEEK Qty: 0 RF: 0 ropinirole [Requip] 1 mg Tablet 1 mg PO BEDTIME RF: 0 aspirin 81 MG tablet,delayed release (DR/EC) 81 mg PO DAILY RF: 0 fluticasone [Flovent Diskus] 250 mcg/actuation Blister With Device 1 inh INHALATION BID RF: 0 Discontinued acetaminophen 325 mg Tablet 325 mg PO BID RF: 0 Follow up/Referrals: Ana Rosa Antonio [Other] (Follow up within 1 week with your PCP for COPD treatment.) Rhett Schneidre MD [Physician] - (Follow up 05/19/18 at 3pm with Juan Tsang at [facility]) Provider Discharge Instructions Diet: Diet as Tolerated Activity: Weight-bearing as tolerated, use walker until cleared by PT Cold/Heat Therapy: Apply ice 20 minutes at a time to operative site at least hourly while awake Skin/Wound/Dressing Care Report to your healthcare provider any signs of infection, such as:: chills, fever, night sweats, increased pain, unusual drainage and unusual redness Dressing: Keep dressing clean, dry, and intact. May shower with it in place but no soaking. Visit Report/Discharge Packet Instructions: DI for Knee Replacement Visit Report Forms: Stroke Signs & Symptoms Discharge Data Attending Provider: Rhett Schneider Admit Date/Time: 05/12/18 07:56
[2018-05-15] MEDS: ACETAMINOPHEN 325 MG TABLET 975 MG PO (09:15)
[2018-05-15] MEDS: guaiFENesin ER 600 MG TAB 1200 MG PO (09:16)
[2018-05-15] MEDS: SODIUM CHLORIDE 0.9% FLUSH 10 ML IV (09:17)
[2018-05-15] MEDS: TELMISARTAN 40 MG TABLET PO (09:17)
[2018-05-15] MEDS: SENNOSIDES 8.6 MG TABLET 17.2 MG PO (09:26)
[2018-05-15] MEDS: ASPIRIN EC 81 MG TABLET PO (09:27)
--- NOTE | 2018-05-15 09:54 | PT.IPTN ---
Current Diagnoses Acute posthemorrhagic anemia (05/12/18) Chronic obstructive pulmonary disease, unspecified (05/12/18) Unilateral primary osteoarthritis, left knee (05/12/18) Hemarthrosis, left knee (05/12/18) Hypoxemia (05/12/18) Other specified postprocedural states (05/12/18) Surgery Performed Operation Date: 05/12/18 10:30 Actual Procedures p Total Knee Arthroplasty(Left) - Rhett Schneider MD Physical Therapy Treatment Note M2 PT-IP Current Condition Start: 05/12/18 16:35 Freq: NEEDED Status: Active Protocol: Document 05/12/18 16:32 DLM (Rec: 05/12/18 16:46 DLM [id number]) Physical Therapy Current Condition Current Condition Evaluation Date 05/12/18 Treatment Diagnosis left TKA, impaired gait Onset Date 05/12/17 Weight Bearing Status Weight Bearing Status Weight Bear as Tolerated M3 PT-IP Subjective Start: 05/12/18 16:35 Freq: NEEDED Status: Active Protocol: Document 05/15/18 09:54 AB (Rec: 05/15/18 11:15 AB [id number]) Subjective Physical Therapy Visit Type Type Treatment Note Visit Start Time 09:54 Visit Stop Time 10:29 Total Visit Minutes 35 Number of CAUSTIC ROOM ATTENDANT Visits 0 Physical Therapy Visit Comments Patient Comments pt agreeable to do PT Therapy Pain Assessment Pain When Pain Assessed At Rest Pain Present Pain Present Pain Reported Location L knee Intensity 3 Scale Used Numeric (1 - 10) Pain Management Techniques Apply Cold Timing of Activity with Medications M4 PT-IP Mobility and Gait Start: 05/12/18 16:35 Freq: NEEDED Status: Active Protocol: Document 05/15/18 09:54 AB (Rec: 05/15/18 11:15 AB [id number]) PT-Bed Mobility Assessment Supine to Sit Supine to Sit Standby Assistance Sit to Supine Sit to Supine Standby Assistance PT-Transfer Assessment Sit to and From Stand Sit to and from Stand Standby Assistance Contact Guard Assistance Equipment Transfer Assistive Device Gait Belt Front Wheeled Walker Orthotic/Prosthetic Devices or Brace: No Transfers Transfer Destination Toilet Transfer Technique pt ambulated to the toilet Transfer Ability Level of Assist Contact Guard Assistance Comments Mobility Comments pt ambulated towards the toilet using FWW CGA. pt was able to maintain standing balance using FWW for support while managing brief. pt ambulated to the chair using FWW ~ 15 ft CGA Gait Assessment Gait Gait Assistance Required: Contact Guard Assist Distance (Feet) 75 Able to Maintain Weight Bearing Status Yes During Gait Assistive Devices Assistive Device Gait Belt Front Wheeled Walker Orthotic/Prosthetic Devices or Brace: No Gait Deviations General Gait Pattern Antalgic Decreased Stride Length Decreased Feet Clearance Step-to Gait Factors Limiting Gait Function Factors Limiting Gait Function Decreased Activity Tolerance Decreased Strength Limited Range of Motion Pain Poor Balance Comments Gait Comments O2 sat monitored: resting at room air varies from 86 to 93% ; with activity: decreases to ~ 83%. cued for PLB and O2 sat increase to 90%. nurse informed pt ambulated into the hallway using FWW SBA to CGA ~ 75 ft. M5 PT-IP Objective Assessments Start: 05/12/18 16:35 Freq: NEEDED Status: Active Protocol: Document 05/12/18 16:32 DLM (Rec: 05/12/18 16:46 DLM [id number]) Orientation Orientation/Cognition Level of Alertness Alert Orientation Name Age Birthday Month Date Year Day of Week Place Situation Language Function Ability No Deficits Noted Safety Awareness Understands Safety Issues Memory Description No Deficits Noted Gross Range of Motion Upper Extremity ROM Assessment Within Functional Limits Lower Extremity ROM Assessment Left Impaired Impairments post-op, tolerating 90 degrees seated edge of bed and full extension in supine Strength Upper Extremity Strength Assessment Within Functional Limits Lower Extremity Strength Assessment Left Impaired Hip independent straight leg raise with extensor lag Knee at least 3/5 post-op Ankle DF 5/5 Coordination Assessment Gross Coordination Gross Coordination WNL Sensation Assessment Sensation Gross Sensation WNL Comments Sensation Comments no numbness reported, pt has bandar wrap on left LE Muscle Tone Muscle Tone WNL Yes M6 PT-IP Treatment Start: 05/12/18 16:35 Freq: NEEDED Status: Active Protocol: Document 05/15/18 09:54 AB (Rec: 05/15/18 11:15 AB [id number]) Physical Therapy Treatment Exercises Exercises Quad Sets Heel Slides Education Education Provided Precautions Weight Bearing Status Safety M7 PT-IP Assessment and Plan Start: 05/12/18 16:35 Freq: NEEDED Status: Active Protocol: Document 05/15/18 09:54 AB (Rec: 05/15/18 11:15 AB [id number]) PT Summary Assessment and Plan Potential Rehabilitation Potential Good Summary Impairments Pain ROM Strength Balance Coordination Sensation Bed Mobility Transfers Gait Activity Tolerance Progress Towards Goals Slow Progress due to Activity Tolerance Assessment Summary pt requiring SBA to CGA with mobility and plans to go home with her daughter to assist her. O2 sat continues to decrease with activity. nurse aware. pt may go home when medically stable. Goals Bed Mobility Goal Independent Transfer Goal Independent Front Wheeled Walker Gait Goal Independent Front Wheel Walker Gait Distance 150 feet Days to Meet Goals 2 Frequency of Treatment Frequency Of Treatment Twice a Day Treatment Plan Physical Therapy Treatment Plan Bed Mobility Training Transfer Training Gait Training Therapeutic Exercise Balance Retraining Post Op Education Discharge Planning Hot or Cold Pack Recommendations To Nursing Amount of Assist Needed 1 Person Assist Discharge Recommendations PT Discharge Recommendations Home with Assistance Outpatient PT
[2018-05-15] MEDS: ONDANSETRON 4 MG ODT PO (10:00)
--- NOTE | 2018-05-15 11:12 | PC.NURSE ---
Addendum entered by Oralia Cruz R.N. 05/15/18 13:32: dc - after lunch given ibuprofen for l knee discomfort, RT tmt provided prior to dc and a nicotine patch applied, reviewed dc instructions with pt and dtr, her belongings gathered, including cell phone, clothing, glasses, shoes, business process representative assisted with clothing and tsf to and escorted to dtrs car. Original Note: AM NOTE - 02 sat 94% 1L overnight, spoke to , Gege Harper PA and RT regarding 02 requirements, per , sat >88 acceptable and 02 removed this am and sat 90%, enc freq use flutter valve and pt demonstrated correct use, discussed constipation and narcotics, new order recd and admin senna tabs, also given prune juice, later phys therapy in and pt had episode nausea initially, given oxycodone 5mg prior to mobilization, nausea resolved after sl zofran, ambul in hallway with phys therapy, gait steady, 02 sat decr to mid 80's during exhertion, pt recovers to 90% ra at rest.
--- NOTE | 2018-05-15 12:13 | CM.DPNOTE ---
DC likely today, home w/family, no need for HH indicated. No barriers if pt is medically stable and tolerates activity w/o O2. Following in case DC needs or concerns arise. JW
[2018-05-15] MEDS: IBUPROFEN 600 MG TABLET PO (12:49)
[2018-05-15] MEDS: NICOTINE 7 MG PATCH TOP (13:12)
== END 2018-05-15 13:45 | disposition home or self-care (01) | DRG 470 ==
PROVIDERS: Internal Medicine; Admitting Provider Orthopaedic Surgery; Visit Provider Orthopaedic Surgery
PROC: 0SRD0JZ Replacement of Left Knee Joint with Synthetic Substitute, Open Approach (ICD-10-PCS; CPT 27447; principal; 2018-05-12 10:30)
DX: M17.12 Unilateral primary osteoarthritis, left knee (principal); D62 Acute posthemorrhagic anemia; J98.11 Atelectasis; Z96.651 Presence of right artificial knee joint; G47.33 Obstructive sleep apnea (adult) (pediatric); I10 Essential (primary) hypertension; E78.5 Hyperlipidemia, unspecified; F17.210 Nicotine dependence, cigarettes, uncomplicated; R05 Cough; J44.9 Chronic obstructive pulmonary disease, unspecified; R06.02 Shortness of breath; E03.9 Hypothyroidism, unspecified
CPT/HCPCS: 36415; 71045; 73560; 80053; 85014; 85018; 85025; 94640; 94667; 94760; 94762; 97110; 97116; 97162; 97530; C1776; C9290; J0690; J2250; J2274; J2405; J2704; J3010